=== PATIENT | male | born 1955 | race Hispanic/Latino ===

== ENCOUNTER 2021-01-06 15:26 | Emergency (ER) | payer OTHER ==
[2021-01-06 16:59] LABS: Protime INR 1.03
[2021-01-06 17:02] LABS: RBC Red Blood Cell Count 3.98 M/uL (4.33-5.43)
[2021-01-06 17:03] LABS: Absolute Lymphocytes (CBC) 0.5 K/uL (0.7-4.9); Basophils % 0.1 % (0-1.3); MPV 7.8 fL (7.6-11.3)
[2021-01-06 17:25] LABS: ALT/SGPT 20 U/L (12-78); AST/SGOT 17 U/L (15-37); Alkaline Phosphatase 75 U/L (45-117); BUN Blood Urea Nitrogen 11 mg/dL (7-18); Bicarbonate 25 mmol/L (21-32); Bilirubin Direct 0.2 mg/dL (0-0.2); Bilirubin Total 0.4 mg/dL (0.2-1.0); Ferritin 664.3 ng/mL (26-388); Glucose Level 267 mg/dL (74-106); Magnesium 2.3 mg/dL (1.8-2.4); NT PRO-BNP 423 pg/mL (<125); Potassium 3.9 mmol/L (3.5-5.1); Protein, Total 7.9 g/dL (6.4-8.2); Sodium Level 134 mmol/L (136-145); Troponin (Emerg Dept Use Only) < 0.02 ng/mL (0.0-0.045)
[2021-01-06] MEDS ORDERED: [UNRECOGNIZED DRUG - OTHER] IV ONE (18:00)
[2021-01-06] MEDS ORDERED: [UNRECOGNIZED DRUG - OTHER] IV ONE (18:15)
--- NOTE | 2021-01-06 18:28 | RAD REPORT ---
EXAM DESCRIPTION: CT - Chest For Pe Angio - 01/06/2021 6:14 pm CLINICAL HISTORY: Chest pain;Cough COMPARISON: No comparisons FINDINGS: Chest Wall: No suspicious thyroid nodules or pathologic lymphadenopathy. Lungs: Patchy bilateral ground-glass opacities, moderate in severity. Pleura: No significant effusions or pneumothorax. Mediastinum/marcel: No pathologic lymphadenopathy. Pulmonary arteries/Aorta: No filling defect identified. No aortic aneurysm. Heart: No significant pericardial effusion. Normal heart size. Upper abdomen: No acute abnormality. Bones: No acute abnormality. IMPRESSION: Negative for pulmonary embolism. Moderate bilateral airspace disease in a pattern concer tremaine for multifocal pneumonia, including Covid-19.
[2021-01-06] MEDS ORDERED: METHYLPREDNISOLONE 40 MG INJ ONE (19:39)
[2021-01-06] MEDS ORDERED: BENZONATATE 100 MG CAP PO ONE (19:39)
[2021-01-06] MEDS ORDERED: INSULIN -REGULAR HUMAN 50 UNIT/0.5 ML ML ONE (19:40)
[2021-01-06] MEDS ORDERED: NA CHLORIDE 0.9% 500 ML ONE (19:48)
[2021-01-06] MEDS ORDERED: ACETAMINOPHEN 500 MG TAB ONE (19:48)
--- NOTE | 2021-01-06 19:48 | EDPHYS ---
Physician Documentation [facility] Name: Braydon Obrien Age: 65 yrs Sex: Male : 1955 Arrival Date: 01/06/2021 Time: 15:28 Bed 27 Private MD: ED Physician Gilbert Otoole HPI: 01/06 16:20 This 65 yrs old Male presents to ER via Ambulatory with complaints of covid+, cp symptoms worsening. 16:20 The patient or guardian reports cough, that is constant, with no sputum, difficulty cp breathing. 16:20 Onset: The symptoms/episode began/occurred 7 day(s) ago. Associated signs and symptoms: cp Pertinent positives: chest pain, with cough, back pain, Pertinent negatives: fever, sore throat, vomiting. Severity of symptoms: in the emergency department the symptoms are unchanged despite home interventions. Patient reports testing positive for COVID-19 3 days ago. Historical: - Allergies: 16:09 No Known Allergies; iw - PMHx: 16:09 Diabetes mellitus; Hypertensive disorder; iw - PSHx: 16:09 left leg; iw ROS: 16:30 Constitutional: Negative for body aches, chills, fever, poor PO intake. cp 16:30 Eyes: Negative for injury, pain, redness, and discharge. cp 16:30 ENT: Negative for ear pain, sore throat, difficulty swallowing, difficulty handling secretions. 16:30 Cardiovascular: Positive for chest pain, with cough, Negative for edema, palpitations. 16:30 Respiratory: Positive for cough, "sounds productive", shortness of breath, at rest. Negative for wheezing. 16:30 Abdomen/GI: Negative for abdominal pain, nausea, vomiting, and diarrhea. 16:30 Back: Positive for pain at rest, pain with movement, of the left subscapular area and right subscapular area. 16:30 Skin: Negative for rash. 16:30 Neuro: Negative for altered mental status, headache, syncope, weakness. 16:30 All other systems are negative. Exam: 16:33 Constitutional: The patient appears in no acute distress, alert, awake, cp non-diaphoretic, non-toxic, well developed, well nourished. 16:33 Head/Face: Normocephalic, atraumatic. cp 16:33 Eyes: Periorbital structures: appear normal, Pupils: equal, round, and reactive to light and accomodation, Extraocular movements: intact throughout, Conjunctiva: normal, no exudate, no injection, Sclera: no appreciated abnormality, Lids and lashes: appear normal, bilaterally. 16:33 ENT: External ear(s): are unremarkable, Nose: is normal, Mouth: Lips: moist, Oral mucosa: pink and intact, moist, Posterior pharynx: Airway: no evidence of obstruction, patent. 16:33 Neck: ROM/movement: is normal, is supple, without pain, no range of motions limitations, no meningismus, no nuchal rigidity. 16:33 Chest/axilla: Inspection: normal, Palpation: is normal, no crepitus, no tenderness. 16:33 Cardiovascular: Rate: normal, Rhythm: regular, Edema: is not appreciated, JVD: is not appreciated. 16:33 Respiratory: the patient does not display signs of respiratory distress, Respirations: labored breathing, is not present, shallow respirations, that is mild, Breath sounds: bronchial sounds, that are mild, are heard diffusely, decreased breath sounds, are not appreciated, stridor, is not appreciated, wheezing: is not appreciated. 16:33 Abdomen/GI: Inspection: abdomen appears normal, Palpation: abdomen is soft and non-tender, in all quadrants. 16:33 Neuro: Orientation: to person, place \\T\\ time. Mentation: is normal, Motor: moves all fours, strength is normal, Gait: is steady, at a normal pace, without difficulty. Vital Signs: 16:07 BP 154 / 82; Pulse 71; Resp 18 S; Temp 97.7(TE); Pulse Ox 97% on R/A; iw 19:32 BP 166 / 77; Pulse 78; Resp 16; Temp 98.0; Pulse Ox 98% on R/A; iw MDM: 15:56 Patient medically screened. cp 17:00 Differential diagnosis: bronchitis, flu, URI, respiratory failure, pneumonia. cp 19:48 Data reviewed: vital signs, nurses notes, lab test result(s), radiologic studies, CT cp scan, plain films, I have discussed the patient's presentation/case with the attending Emergency Department Physician; and as a result, I will discharge patient. 19:48 Counseling: I had a detailed discussion with the patient and/or guardian regarding: the cp historical points, exam findings, and any diagnostic results supporting the discharge/admit diagnosis, lab results, radiology results, the need for outpatient follow up, a family practitioner, to return to the emergency department if symptoms worsen or persist or if there are any questions or concerns that arise at home. 19:48 Test interpretation: by ED physician or midlevel provider: plain radiologic studies. ED cp course: VSS. No signs of respiratory distress, patient appears non-toxic. Will discharge to home for continued monitoring. 01/06 16:17 Order name: Basic Metabolic Panel; Complete Time: 17:41 cp 01/06 19:30 Interpretation: Normal except: NA 134; GLUC 267. cp 01/06 16:17 Order name: CBC with Diff; Complete Time: 17:41 cp 01/06 16:17 Order name: LFT's; Complete Time: 17:41 cp 01/06 16:17 Order name: Magnesium; Complete Time: 17:41 cp 01/06 16:17 Order name: NT PRO-BNP; Complete Time: 17:41 cp 01/06 16:17 Order name: PT-INR; Complete Time: 17:41 cp 01/06 16:17 Order name: Troponin (emerg Dept Use Only); Complete Time: 17:41 cp 01/06 16:17 Order name: XRAY Chest (1 view) cp 01/06 16:17 Order name: CRP; Complete Time: 17:41 cp 01/06 16:17 Order name: Ferritin; Complete Time: 17:41 cp 01/06 17:43 Order name: CT Chest For PE Angio; Complete Time: 19:30 cp 01/06 17:44 Order name: INCENTIVE SPIROMETRY cp 01/06 16:17 Order name: EKG; Complete Time: 16:18 cp 01/06 16:17 Order name: Cardiac monitoring; Complete Time: 19:22 cp 01/06 16:17 Order name: EKG - Nurse/Tech; Complete Time: 19:22 cp 01/06 16:17 Order name: IV Saline Lock; Complete Time: 19:22 cp 01/06 16:17 Order name: Labs collected and sent; Complete Time: 19:22 cp 01/06 16:17 Order name: O2 Per Protocol; Complete Time: 19:22 cp 01/06 16:17 Order name: O2 Sat Monitoring; Complete Time: 19:22 cp Administered Medications: 17:44 Not Given (Physician Discretion): NS 0.9% 500 ml IV at 125 ml/hr continuous cp 18:34 Drug: REGEN-COV Dose Pack 120 mg/mL-120 mg/mL (EUA) 600 mg Route: IV; Rate: 600 per iw protocol; Site: left forearm; 19:21 Drug: Tessalon Perle (benzonatate) 200 mg Route: PO; iw 19:33 Follow up: Response: No adverse reaction iw 19:21 Drug: SOLU-Medrol (methylPrednisoLONE) 80 mg Route: IVP; Site: left forearm; iw 19:33 Follow up: Response: No adverse reaction iw 19:22 Not Given (Patient Refused): Benadryl (diphenhydrAMINE) 25 mg IVP once iw 19:33 Drug: Insulin Regular Human 5 units {Co-Signature: kg (Maritza Sánchez RN).} Route: iw Sub-Q; Site: right upper abdomen; 19:33 Drug: NS 0.9% 500 ml Route: IV; Rate: bolus; Site: left forearm; iw 19:34 Drug: Acetaminophen 1000 mg Route: PO; iw 19:34 Not Given (Physician Discretion): NS 0.9% 500 ml IV at 100 ml/hr continuous iw Disposition: 01/07 07:36 Co-signature as Attending Physician, Gilbert Otoole MD I agree with the assessment and haley plan of care. Disposition Summary: 01/06/21 19:48 Discharge Ordered Location: Home cp Problem: new cp Symptoms: have improved cp Condition: Stable cp Diagnosis - Other viral pneumonia cp - SARS-associated coronavirus as the cause of diseases classified elsewhere cp Followup: cp - With: Private Physician - When: 1 - 2 days - Reason: Worsening of condition Discharge Instructions: - Discharge Summary Sheet cp - COVID-19 cp - Things to Know about the COVID-19 Pandemic - [facility] - 10 Things You Can Do to Manage Your COVID-19 Symptoms at Home - [facility] [place] - Frequently Asked Questions About COVID-19 Vaccination - [facility] [place] - COVID-19: Quarantine vs. Isolation - [facility] [place] - Prevent the Spread of COVID-19 if You Are Sick - [facility] [place] cp Forms: - Medication Reconciliation Form cp - Thank You Letter cp - Antibiotic Education cp - Prescription Opioid Use cp Signatures: Dispatcher [employer] Gilbert Monaco MD MD [place], Lilo, RN RN Gilbert Ashton PA PA cp Maritza Sánchez RN kg
--- NOTE | 2021-01-06 19:48 | ER ---
Nurse's Notes [facility] Name: Braydon Obrien Age: 65 yrs Sex: Male : 1955 Arrival Date: 01/06/2021 Time: 15:28 Bed 27 Private MD: Diagnosis: Other viral pneumonia;SARS-associated coronavirus as the cause of diseases classified elsewhere Presentation: 01/06 16:07 Chief complaint: Patient states: COVID+ since Th, symptoms started 4 days prior, is iw having SOB, cough, fatigue ,was vomiting but that has resolved, is tolerating fluids now. Coronavirus screen: cough unrelated to allergies, difficulty breathing, fatigue. Ebola Screen: Patient negative for fever greater than or equal to 101.5 degrees Fahrenheit, and additional compatible Ebola Virus Disease symptoms Patient denies exposure to infectious person. Patient denies travel to an Ebola-affected area in the 21 days before illness onset. No symptoms or risks identified at this time. Initial Sepsis Screen: Does the patient meet any 2 criteria? No. Patient's initial sepsis screen is negative. Does the patient have a suspected source of infection? No. Patient's initial sepsis screen is negative. Risk Assessment: Do you want to hurt yourself or someone else? Patient reports no desire to harm self or others. Onset of symptoms was December 30, 2020. 16:07 Method Of Arrival: Ambulatory iw 16:07 Acuity: JULIAN 3 iw Historical: - Allergies: 16:09 No Known Allergies; iw - PMHx: 16:09 Diabetes mellitus; Hypertensive disorder; iw - PSHx: 16:09 left leg; iw Screenin:35 Abuse screen: Denies threats or abuse. Denies injuries from another. Nutritional iw screening: No deficits noted. Tuberculosis screening: No symptoms or risk factors identified. Fall Risk None identified. Assessment: 16:30 General: Appears in no apparent distress. comfortable, Behavior is calm, cooperative. iw General: Reports feeling ill for fatigue for. Pain: Denies pain. Neuro: Level of Consciousness is awake, alert, obeys commands, Oriented to person, place, time, situation, Moves all extremities. Full function. Cardiovascular: Patient's skin is warm and dry. Respiratory: Reports shortness of breath cough that is Respiratory effort is even, unlabored, Respiratory pattern is regular, symmetrical. Derm: Skin is intact, is healthy with good turgor. Musculoskeletal: Capillary refill < 3 seconds. 19:32 Reassessment: Patient appears in no apparent distress at this time. Patient and/or iw family updated on plan of care and expected duration. Pain level reassessed. Patient is alert, oriented x 3, equal unlabored respirations, skin warm/dry/pink. Vital Signs: 16:07 BP 154 / 82; Pulse 71; Resp 18 S; Temp 97.7(TE); Pulse Ox 97% on R/A; iw 19:32 BP 166 / 77; Pulse 78; Resp 16; Temp 98.0; Pulse Ox 98% on R/A; iw ED Course: 15:28 Patient arrived in ED. as 15:53 Gilbert Stoddard PA is PHCP. cp 15:53 Gilbert Otoole MD is Attending Physician. cp 16:02 Lilo Hermosillo RN is Primary Nurse. iw 16:09 Triage completed. iw 17:37 XRAY Chest (1 view) In Process Unspecified. EDMS 18:00 Initial lab(s) drawn, by me, sent to lab. Inserted saline lock: 20 gauge in left iw forearm, using aseptic technique. Blood collected. 18:14 CT Chest For PE Angio In Process Unspecified. EDMS Administered Medications: 17:44 Not Given (Physician Discretion): NS 0.9% 500 ml IV at 125 ml/hr continuous cp 18:34 Drug: REGEN-COV Dose Pack 120 mg/mL-120 mg/mL (EUA) 600 mg Route: IV; Rate: 600 per iw protocol; Site: left forearm; 19:21 Drug: Tessalon Perle (benzonatate) 200 mg Route: PO; iw 19:33 Follow up: Response: No adverse reaction iw 19:21 Drug: SOLU-Medrol (methylPrednisoLONE) 80 mg Route: IVP; Site: left forearm; iw 19:33 Follow up: Response: No adverse reaction iw 19:22 Not Given (Patient Refused): Benadryl (diphenhydrAMINE) 25 mg IVP once iw 19:33 Drug: Insulin Regular Human 5 units {Co-Signature: kg (Maritza Sánchez RN).} Route: iw Sub-Q; Site: right upper abdomen; 19:33 Drug: NS 0.9% 500 ml Route: IV; Rate: bolus; Site: left forearm; iw 19:34 Drug: Acetaminophen 1000 mg Route: PO; iw 19:34 Not Given (Physician Discretion): NS 0.9% 500 ml IV at 100 ml/hr continuous iw Outcome: 19:48 Discharge ordered by . bonilla 19:56 Patient left the ED. oe Signatures: Dispatcher [employer] Geena Salmeron Irene, RN RN iw Gilbert Stoddard PA PA cp Espinosa, [place] oe Maritza Sánchez RN kg
[2021-01-06 20:04] VITALS: BP 166/77; TEMP 98; O2SAT 98
--- NOTE | 2021-01-06 20:17 | RAD REPORT ---
EXAM DESCRIPTION: RAD - Chest Single View - 01/06/2021 5:37 pm CLINICAL HISTORY: Chest pain;SOB COMPARISON: Abdomen 1 View (KUB) dated 05/12/2018Abdomen 1 View (KUB) dated 05/12/2018; Chest For Pe Angio dated 01/06/2021 FINDINGS: Patchy bilateral airspace disease The heart size is within normal limits.No acute osseous abnormality. No significant pleural effusions or pneumothorax. IMPRESSION: Moderate bilateral airspace disease concerning for multifocal pneumonia.
== END 2021-01-06 19:56 | disposition home or self-care (01) ==
LOC: ER 15:26
DX: U07.1 COVID-19 (principal); J12.89 Other viral pneumonia; I10 Essential (primary) hypertension; E11.9 Type 2 diabetes mellitus without complications
CPT/HCPCS: 85025; 80048; 36415; 83735; 85610; 80076; 84484; 82728; 83880; 86140; 71275; 71045; 96375; 96372; 96374; 99284; Q9967; J7050; J7040; J2920